=== PATIENT | male | born 1960 | race Caucasian/White ===

== ENCOUNTER 2016-12-12 08:58 | Observation (INO) | payer OTHER ==
[~2016-12-12] VITALS: Ht 183.1 cm; Wt 67.1 kg
[2016-12-12 09:22] LABS: BASO % 1 % (0-3); EOS % 0 % (0-3); HEMATOCRIT 43.8 % (39.0-53.0); HEMOGLOBIN 15.5 g/dL (13.0-17.5); LYMPH % 14 % (24-48); MEAN CORPUSCULAR HEMOGLOBIN 30 pg (25-35); MEAN CORPUSCULAR HGB CONC 35 g/dL (31-37); MEAN CORPUSCULAR VOLUME 86 fL (79-100); MONO % 5 % (0-9); NEUT % 79 % (31-73); PLATELET COUNT 183 x10^3/uL (140-400); RED BLOOD COUNT 5.11 x10^6/uL (4.30-5.70); RED CELL DISTRIBUTION WIDTH 12.8 % (11.5-14.5); WHITE BLOOD COUNT 6.8 x10^3/uL (4.0-11.0)
[2016-12-12] MEDS ORDERED: KETOROLAC TROMETHAMINE 30 MG/ML INJ. IV ONE (09:30)
[2016-12-12] MEDS ORDERED: ONDANSETRON PF 4 MG/2 ML VIAL. IV ONE (09:30)
--- NOTE | 2016-12-12 09:33 | PHYS DOC ---
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 Patient states that at 8:00 this morning he became dizzy. He states that he has been taking Excedrin headache that he has had over his frontal sinus area. He also states that he's had a headache on the right side of his head from his right cheek area to his nasal area. Patient states that he is unable to tell if the room is spinning or if he is spinning. Patient states that he's been nauseated has not vomited as of yet. He is unsure if he has had any fevers chills at home. He states that 7:00 this morning he took some Excedrin for his headache with no relief. Patient denies cough and congestion. Review of Systems Review of Systems Constitutional: Denies fever or chills [] Eyes: Denies change in visual acuity, redness, or eye pain [] HENT: Denies nasal congestion or sore throat [] Respiratory: Denies cough or shortness of breath [] Cardiovascular: No additional information not addressed in HPI [] GI: Denies abdominal pain, nausea, vomiting, bloody stools or diarrhea [] : Denies dysuria or hematuria [] Musculoskeletal: Denies back pain or joint pain [] Integument: Denies rash or skin lesions [] Neurologic: headache, denies focal weakness or sensory changes [] Endocrine: Denies polyuria or polydipsia [] Current Medications Current Medications Current Medications Medications (Trade) Dose Ordered Sig/Suzie Start Time Stop Time Status Last Admin Dose Admin Diphenhydramine HCl (Benadryl) 25 mg 1X ONCE 12/12/16 10:15 12/12/16 10:16 DC 12/12/16 10:14 25 MG Ketorolac Tromethamine (Toradol) 30 mg 1X ONCE 12/12/16 09:30 12/12/16 09:31 DC 12/12/16 09:36 30 MG Meclizine HCl (Antivert) 25 mg 1X ONCE 12/12/16 10:45 12/12/16 10:46 DC 12/12/16 10:56 25 MG Ondansetron HCl (Zofran) 4 mg 1X ONCE 12/12/16 09:30 12/12/16 09:31 DC 12/12/16 09:34 4 MG Promethazine HCl (Phenergan Im) 25 mg 1X ONCE 12/12/16 10:00 12/12/16 10:01 DC 12/12/16 09:56 25 MG Allergies Allergies Allergies Coded Allergies Type Severity Reaction Last Updated Verified No Known Drug Allergies 12/12/16 No Physical Exam Physical Exam Constitutional: Well developed, well nourished, no acute distress, non-toxic appearance. [] HENT: Normocephalic, atraumatic, bilateral external ears normal, oropharynx moist, no oral exudates, nose normal. Right TM normal left TM red, frontal sinus tenderness noted, right maxillary sinus tenderness noted. Throat without erythema, redness or exudate Eyes: PERRLA, EOMI, conjunctiva normal, no discharge. [] Neck: Normal range of motion, no tenderness, supple, no stridor. [] Cardiovascular:Heart rate regular rhythm, no murmur [] Lungs & Thorax: Bilateral breath sounds clear to auscultation [] Skin: Warm, dry, no erythema, no rash. [] Back: No tenderness Extremities: No tenderness, no cyanosis, no clubbing, ROM intact, no edema. [] Neurologic: Alert and oriented X 3, normal motor function, normal sensory function, no focal deficits noted. Cranial nerves II-XI intact Psychologic: Affect normal, judgement normal, mood normal. [] Current Patient Data Vital Signs Vital Signs Date Time Temp Pulse Resp B/P (MAP) Pulse Ox O2 Delivery O2 Flow Rate FiO2 12/12/16 09:00 97.0 75 22 173/86 (115) 98 Room Air 97.0 Lab Values Laboratory Tests Test 12/12/16 09:15 White Blood Count 6.8 x10^3/uL (4.0-11.0) Red Blood Count 5.11 x10^6/uL (4.30-5.70) Hemoglobin 15.5 g/dL (13.0-17.5) Hematocrit 43.8 % (39.0-53.0) Mean Corpuscular Volume 86 fL (79-100) Mean Corpuscular Hemoglobin 30 pg (25-35) Mean Corpuscular Hemoglobin Concent 35 g/dL (31-37) Red Cell Distribution Width 12.8 % (11.5-14.5) Platelet Count 183 x10^3/uL (140-400) Neutrophils (%) (Auto) 79 % (31-73) H Lymphocytes (%) (Auto) 14 % (24-48) L Monocytes (%) (Auto) 5 % (0-9) Eosinophils (%) (Auto) 0 % (0-3) Basophils (%) (Auto) 1 % (0-3) Neutrophils # (Auto) 5.4 x10^3uL (1.8-7.7) Lymphocytes # (Auto) 1.0 x10^3/uL (1.0-4.8) Monocytes # (Auto) 0.4 x10^3/uL (0.0-1.1) Eosinophils # (Auto) 0.0 x10^3/uL (0.0-0.7) Basophils # (Auto) 0.0 x10^3/uL (0.0-0.2) Sodium Level 137 mmol/L (136-145) Potassium Level 3.8 mmol/L (3.5-5.1) Chloride Level 100 mmol/L (98-107) Carbon Dioxide Level 25 mmol/L (21-32) Anion Gap 12 (6-14) Blood Urea Nitrogen 19 mg/dL (8-26) Creatinine 1.0 mg/dL (0.7-1.3) Estimated GFR (Cockcroft-Gault) 77.3 BUN/Creatinine Ratio 19 (6-20) Glucose Level 126 mg/dL (70-99) H Calcium Level 8.9 mg/dL (8.5-10.1) Total Bilirubin 0.9 mg/dL (0.2-1.0) Aspartate Amino Transferase (AST) 22 U/L (15-37) Alanine Aminotransferase (ALT) 41 U/L (16-63) Alkaline Phosphatase 73 U/L (46-116) Troponin I Quantitative < 0.017 ng/mL (0.000-0.055) Total Protein 7.3 g/dL (6.4-8.2) Albumin 4.4 g/dL (3.4-5.0) Albumin/Globulin Ratio 1.5 (1.0-1.7) Laboratory Tests 12/12/16 09:15 Laboratory Tests 12/12/16 09:15 EKG EKG EKG completed at 0903 with heart rate of 70 sinus rhythm noted no STEMI per Dr. Doll. [] Radiology/Procedures Radiology/Procedures [] Course & Med Decision Making Course & Med Decision Making Pertinent Labs and Imaging studies reviewed. (See chart for details) Patient was re-evaluated with headache and nausea gone, patient states he is still dizzy. Meclizine ordered. 1125 Patient was re-evaluated and stated that the dizziness is better. Patient will be provided with meclizine prescription, and augmentin prescription. Recommended home to rest, drink plenty of fluids, Signs and symptoms to return to the emergency department has been provided. Patient will discharged home in stable condition. 1154 after preparing information for patient to be discharged nursing staff prepared to return the patient with patient failing and became lightheaded and dizzy. Patient will be admitted as an observation status to the hospitalist. Patient will be provided meclizine Augmentin here in the hospital for his complaints. With Dr. Blank who agrees with admission. [] Dragon Disclaimer Dragon Disclaimer This electronic medical record was generated, in whole or in part, using a voice recognition dictation system. Departure Departure Impression: Primary Impression: Otitis media of left ear Additional Impression: Vertigo Disposition: ADMITTED INPATIENT Admitting Physician: Other (dr Blank) Condition: STABLE Referrals: NO PCP (PCP) Problem Qualifiers DIMPLE BACA APRN Dec 12, 2016 09:33
[2016-12-12 09:45] LABS: CALCIUM 8.9 mg/dL (8.5-10.1); GFR 77.3; POTASSIUM 3.8 mmol/L (3.5-5.1)
[2016-12-12 09:46] LABS: ALBUMIN 4.4 g/dL (3.4-5.0); ALBUMIN/GLOBULIN RATIO 1.5 (1.0-1.7); TOTAL BILIRUBIN 0.9 mg/dL (0.2-1.0); TOTAL PROTEIN 7.3 g/dL (6.4-8.2)
[2016-12-12] MEDS ORDERED: PROMETHAZINE IM 25 MG/ML VIAL IM ONE (10:00)
--- NOTE | 2016-12-12 10:03 | RAD ---
CT of the head without contrast, 12/12/2016: History: Migraine headache The ventricles are within normal limits in size. There is no shift of the midline structures. There is no evidence of acute intracranial hemorrhage or mass effect. No abnormal extra-axial fluid collection or mass is seen. IMPRESSION: No acute intracranial abnormality is detected. PQRS Compliance Statement: One or more of the following individualized dose reduction techniques were utilized for this examination: 1. Automated exposure control 2. Adjustment of the mA and/or kV according to patient size 3. Use of iterative reconstruction technique
[2016-12-12] MEDS ORDERED: diphenhydrAMINE 50 MG/ML VIAL IVP ONE (10:15)
[2016-12-12] MEDS ORDERED: MECLIZINE HCL 12.5 MG TABLET. PO ONE (10:45)
[2016-12-12] MEDS ORDERED: AMOX1TAB61 PO (11:38)
[2016-12-12] MEDS ORDERED: MECL25TA3 PO (11:38)
[2016-12-12] MEDS ORDERED: MECLIZINE HCL 12.5 MG TABLET. PO PRN (12:00)
[2016-12-12] MEDS ORDERED: ONDANSETRON PF 4 MG/2 ML VIAL. IV PRN (12:00)
--- NOTE | 2016-12-12 13:45 | EKG ---
[facility] [address] [place] [address] Test Date: 2016-12-12 Test Time: 09:03:53 Pat Name: JAVIER HELTON Department: Room: [facility] Gender: M Disaster Director: : 1960 Requested By: DIMPLE BACA Order Number: [id number] Reading MD: Marie Granda Measurements Intervals Eros Rate: 70 P: 62 HI: 186 QRS: -76 QRSD: 86 T: 69 QT: 382 QTc: 415 Interpretive Statements SINUS RHYTHM ABNORMAL LEFT AXIS DEVIATION LEFT ANTERIOR FASCICULAR BLOCK QRS(T) CONTOUR ABNORMALITY CONSISTENT WITH ANTEROSEPTAL INFARCT PROBABLY OLD T ABNORMALITY IN HIGH LATERAL LEADS RI6.01 Unconfirmed report No previous ECG available for comparison Electronically Signed On 12-14-2016 19:01:40 CDT by Marie Granda
[2016-12-12 14:00] VITALS: BP 172/80
[2016-12-12] MEDS: IV NORMAL SALINE 1000ML BAG 1,000 ML IV SCH ×2 (15:03→20:57)
[2016-12-12 19:50] VITALS: BP 138/76
[2016-12-12] MEDS ORDERED: AMOX1TAB11 PO (20:27)
[2016-12-12] MEDS ORDERED: FLUT16SP NS (20:27)
[2016-12-12] MEDS ORDERED: MECL12.52 PO (20:27)
[2016-12-12] MEDS: AMOXICILLIN/K CLAV 875/125MG TABLET. PO SCH (20:52)
[2016-12-12] MEDS: FLUTICASONE 50MCG/NASAL SPRAY 16GM BOTTLE. NS SCH (21:00)
[2016-12-12 23:16] VITALS: BP 136/67
--- NOTE | 2016-12-12 23:19 | SSS ---
ADMIT DATE: 12/12/2016 CHIEF COMPLAINT: Earache, dizziness. HISTORY OF PRESENT ILLNESS: The patient is a 56-year-old gentleman with significant history of environmental allergies without any ongoing treatment. He presented to the Emergency Room from work with inability to walk, dizziness and ear pain on the right. Also relates that he has had some hearing loss actually on the left, which now seems to be a little better. Symptoms started essentially this morning and he relates that he is dizzy, with head movement symptoms are getting worse. This actually makes it difficult for him to walk. He denies any fevers, chills, any nausea, vomiting, any vision problems or other symptoms. In the Emergency Room, he was found with signs of otitis media on the right. Because of his inability to walk, he was admitted for observation to the hospital. PAST MEDICAL HISTORY: None. FAMILY HISTORY: Noncontributory. 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 No toxic habits. ALLERGIES: No known drug allergies. MEDICATIONS: None. REVIEW OF SYSTEMS: Positive as per HPI. Rest of all other systems review is negative. PHYSICAL EXAMINATION: VITAL SIGNS: From today, show a blood pressure of 151/73, heart rate of 72, respiratory rate at 20. He is afebrile. GENERAL: This is a 56-year-old gentleman, well-nourished appearing, alert and oriented, in no acute distress, although affect is flat. HEENT: Shows no scleral icterus. Oral mucosa is pink and moist. NECK: Shows mild submandibular lymphadenopathy, none in the preauricular areas. HEART: Has regular rate and rhythm. LUNGS: Clear to auscultation. Chest shows pectus excavatum. ABDOMEN: Has positive bowel sounds, soft, nontender. EXTREMITIES: Show no edema, no clubbing, no cyanosis. SKIN: Warm, soft and dry without any rash. LABORATORY DATA: CBC with a WBC of 6.8, hemoglobin 15.5, platelets of 183. Chemistries with a BUN and creatinine of 19 and 1.0, normal electrolytes, normal LFTs. IMAGING: CT of the head shows no acute intracranial abnormality. ASSESSMENT AND PLAN: The patient is a 56-year-old gentleman with otitis media and mild imbalance, which is most likely related to inner ear swelling related to the infection. He has been started on Augmentin for this. We will admit him up with IV fluids running. Hopefully, his symptoms will clyde with ongoing antibiotic treatment. Meclizine is available for him for symptoms. Plan is for discharge early in the morning to home with rest. The patient on further questioning relates that he has frequent sinus headaches, postnasal drip and cough in the morning consistent with allergies. He has never tried any medications in the past. Recommendations for Flonase or oral antiallergic medications were given. He requested a list of potential medications which are all [id number]. The patient here in the hospital seems to be hypertensive. He relates that he has never been told of this. We will monitor him here. He does need followup with an outpatient physician to check up on that and if persistent, will need antihypertensive medications. DISCHARGE DATE: 12/13/2016. DISCHARGE DIAGNOSIS: Otitis media, vertigo. DISCHARGE DISPOSITION: To home. DISCHARGE CONDITION: Improved. DISCHARGE MEDICATIONS: Please refer to MAR. DISCHARGE INSTRUCTIONS: The patient will seek a PCP as soon as possible. OLY RODRIGUEZ MD DR: NATALIE/nts JOB#: [id number] / [id number] ALEKSANDER
[2016-12-13 03:15] VITALS: BP 134/71
[2016-12-13] MEDS: IV NORMAL SALINE 1000ML BAG 1,000 ML IV SCH (03:58)
[2016-12-13 07:00] VITALS: BP 137/72
[2016-12-13] MEDS: FLUTICASONE 50MCG/NASAL SPRAY 16GM BOTTLE. NS SCH (08:29)
[2016-12-13] MEDS: AMOXICILLIN/K CLAV 875/125MG TABLET. PO SCH (08:29)
[2016-12-13] MEDS ORDERED: HYDROcodone/APAP 5/325MG 1 TAB TABLET PO PRN (08:45)
[2016-12-13 11:00] VITALS: BP 129/77
[2016-12-13] MEDS ORDERED: BUTALB/APAP/CAFEIN 50/325/40MG TABLET. PO ONE ×2 (13:45→15:45)
[2016-12-13 15:00] VITALS: BP 154/90
[2016-12-13] MEDS ORDERED: LORazepam 1 MG TABLET PO ONE (15:45)
[2016-12-13] MEDS ORDERED: LORazepam 0.5 MG TABLET PO ONE (15:45)
[2016-12-13 19:57] VITALS: BP 147/83
== END 2016-12-13 20:09 | disposition home or self-care (01) ==
LOC: ER 08:58 → 6 SOUTH 11:52
PROVIDERS: ADMIT Internal Medicine Hematology & Oncology; ATTEND Internal Medicine Hematology & Oncology
DX: H66.92 Otitis media, unspecified, left ear (principal); H91.90 Unspecified hearing loss, unspecified ear; I10 Essential (primary) hypertension; R42 Dizziness and giddiness; R26.2 Difficulty in walking, not elsewhere classified; R09.82 Postnasal drip; R05 Cough; G43.909 Migraine, unspecified, not intractable, without status migrainosus
CPT/HCPCS: 36415; 70450; 80053; 84484; 85027; 93005; 96361; 96372; 96374; 96375; 99285; G0378; J1200; J1885; J2405; J2550; J7030; J8597; G0379